=== PATIENT | female | born 1995 | race Caucasian/White ===

== ENCOUNTER 2016-12-08 17:19 | Emergency (ER) | payer OTHER ==
[~2016-12-08] VITALS: Ht 160 cm; Wt 49.9 kg
[~2016-12-08 17:19] MED LIST: AMOX500C2; HYDR-3812; TRAM-42 PO
[2016-12-08 17:39] LABS: BASOPHILS % (AUTO) 1 % (0-10); EOSINOPHILS % (AUTO) 1 % (0-10); LYMPHOCYTES % (AUTO) 29 % (12-44); MEAN CORPUSCULAR HEMOGLOBIN 30 PG (25-34); MEAN CORPUSCULAR HGB CONC 34 G/DL (32-36); MEAN CORPUSCULAR VOLUME 88 FL (80-99); MEAN PLATELET VOLUME 11.1 FL (7.4-10.4); MONOCYTES % (AUTO) 14 % (0-12); NEUTROPHILS % (AUTO) 56 % (42-75); PLATELET COUNT 266 10^3/uL (130-400); RED BLOOD COUNT 4.41 10^6/uL (4.35-5.85); WHITE BLOOD COUNT 7.1 10^3/uL (4.3-11.0)
--- NOTE | 2016-12-08 17:39 | ED GI ---
General Chief Complaint: Abdominal/GI Problems Stated Complaint: VOMITING/UNABLE TO EAT Source of Information: Patient Exam Limitations: No Limitations History of Present Illness Time Seen By Provider: 17:37 Initial Comments To ER with reports of vomiting since 2 a.m., epigastric discomfort. Denies fevers chills or diarrhea. She is about 6 weeks' gestation with last menstrual period October 21. She did have a visit with the nurse at [facility] 2 weeks ago and is scheduled to see Dr. Carranza on December 30. She denies any vaginal bleeding or discharge. Does report some intermittent and infrequent lower abdominal cramping. Timing/Duration: 12-24 Hours Severity/Quality: Moderate Location: Suprapubic Radiation: No Radiation Activities at Onset: None Associated Symptoms: Nausea/Vomiting Allergies and Home Medications Allergies Coded Allergies: No Known Drug Allergies (Unverified , 07/08/16) Home Medications Amoxicillin 500 Mg Capsule, #30 (Reported) Hydrocodone/Acetaminophen 1 Each Tablet, #16 (Reported) Tramadol HCl 50 Mg Tablet, 50 MG PO Q4H, #20 Prescribed by: KOLE PARKINSON on 07/08/16 8222 Review of Systems Constitutional: see HPI EENTM: No Symptoms Reported Respiratory: No Symptoms Reported Cardiovascular: No Symptoms Reported Gastrointestinal: See HPI, Abdominal Pain, Nausea, Vomiting Genitourinary: See HPI Musculoskeletal: no symptoms reported Skin: no symptoms reported Psychiatric/Neurological: No Symptoms Reported Endocrine: No Symptoms Reported Hematologic/Lymphatic: No Symptoms Reported Past Iftlolk-Sqpcrq-Gszvvu Hx Patient Social History Alcohol Use: Denies Use Recreational Drug Use: No Smoking Status: Never a Smoker Recent Foreign Travel: No Contact w/Someone Who Travel: No Recent Hopitalizations: No Seasonal Allergies Seasonal Allergies: No Surgeries HX Surgeries: Yes (WISDOM TEETH REMOVED 07/08/16) Respiratory Hx Respiratory Disorders: No Cardiovascular Hx Cardiac Disorders: No Neurological Hx Neurological Disorders: No Reproductive System Hx Reproductive Disorders: No Genitourinary Hx Genitourinary Disorders: No Gastrointestinal Hx Gastrointestinal Disorders: No Musculoskeletal Hx Musculoskeletal Disorders: No Endocrine Hx Endocrine Disorders: No HEENT HX ENT Disorders: No Cancer Hx Cancer: No Psychosocial Hx Psychiatric Problems: No Integumentary HX Skin/Integumentary Disorder: No Blood Transfusions Hx Blood Disorders: No Physical Exam Vital Signs VS - Last 72 Hours, by Label 12/08/16 17:30 Temp 97.9 Pulse 72 Resp 18 B/P (MAP) 131/81 Pulse Ox 99 Capillary Refill : General Appearance: WD/WN, no apparent distress HEENT: PERRL/EOMI, normal ENT inspection Neck: non-tender, full range of motion Respiratory: no respiratory distress, no accessory muscle use Gastrointestinal: normal bowel sounds, non tender, soft Extremities: non-tender Neurologic/Psychiatric: alert, normal mood/affect, oriented x 3 Skin: normal color, warm/dry Progress/Results/Core Measures Results/Orders Lab Results Laboratory Tests Test 12/08/16 17:30 Range/Units White Blood Count 7.1 4.3-11.0 10^3/uL Red Blood Count 4.41 4.35-5.85 10^6/uL Hemoglobin 13.0 11.5-16.0 G/DL Hematocrit 39 35-52 % Mean Corpuscular Volume 88 80-99 FL Mean Corpuscular Hemoglobin 30 25-34 PG Mean Corpuscular Hemoglobin Concent 34 32-36 G/DL Red Cell Distribution Width 14.0 10.0-14.5 % Platelet Count 266 130-400 10^3/uL Mean Platelet Volume 11.1 H 7.4-10.4 FL Neutrophils (%) (Auto) 56 42-75 % Lymphocytes (%) (Auto) 29 12-44 % Monocytes (%) (Auto) 14 H 0-12 % Eosinophils (%) (Auto) 1 0-10 % Basophils (%) (Auto) 1 0-10 % Neutrophils # (Auto) 4.0 1.8-7.8 X 10^3 Lymphocytes # (Auto) 2.0 1.0-4.0 X 10^3 Monocytes # (Auto) 1.0 0.0-1.0 X 10^3 Eosinophils # (Auto) 0.0 0.0-0.3 10^3/uL Basophils # (Auto) 0.0 0.0-0.1 10^3/uL Sodium Level 136 135-145 MMOL/L Potassium Level 3.7 3.6-5.0 MMOL/L Chloride Level 107 98-107 MMOL/L Carbon Dioxide Level 20 L 21-32 MMOL/L Anion Gap 9 5-14 MMOL/L Blood Urea Nitrogen 5 L 7-18 MG/DL Creatinine 0.59 L 0.60-1.30 MG/DL Estimat Glomerular Filtration Rate > 60 BUN/Creatinine Ratio 8 Glucose Level 80 70-105 MG/DL Calcium Level 9.1 8.5-10.1 MG/DL Total Bilirubin 0.5 0.1-1.0 MG/DL Aspartate Amino Transf (AST/SGOT) 13 5-34 U/L Alanine Aminotransferase (ALT/SGPT) 9 0-55 U/L Alkaline Phosphatase 52 40-136 U/L Total Protein 7.1 6.4-8.2 G/DL Albumin 4.1 3.2-4.5 G/DL Lipase 4 L 8-78 U/L My Orders Orders - HANNAH MARION APRN Cbc With Automated Diff (12/08/16 17:33) Comprehensive Metabolic Panel (12/08/16 17:33) Lipase (12/08/16 17:33) Hcg,Quantitative (12/08/16 17:33) Ua Culture If Indicated (12/08/16 17:33) Saline Lock/Iv-Start (12/08/16 17:33) Us Ob Single Fetus<14 [id number] (12/08/16 17:33) Ns Iv 1000 Ml (Sodium Chloride 0.9%) (12/08/16 17:45) Ondansetron Injection (Zofran Injectio (12/08/16 17:45) Medications Given in ED Current Medications Medications Dose Ordered Sig/Aishwarya Route Start Time Stop Time Status Last Admin Dose Admin Ondansetron HCl 4 mg ONCE ONCE IVP 12/08/16 17:45 12/08/16 17:46 DC 12/08/16 17:46 4 MG Vital Signs/I&O Vital Sign - Last 12Hours 12/08/16 17:30 Temp 97.9 Pulse 72 Resp 18 B/P (MAP) 131/81 Pulse Ox 99 Diagnostic Imaging Diagonstic Imaging: Ultrasound Comments NAME: VIVIANA PENG MED REC#: [id number] PT STATUS: REG ER : 1995 PHYSICIAN: HANNAH MARION APRN ADMIT DATE: 12/08/16/ER Draft Date of Exam:12/08/16 US OB SINGLE FETUS<14 [id number] PROCEDURE: US OB SINGLE FETUS <14 WKS. TECHNIQUE: Multiple real-time grayscale images were obtained over the gravid uterus in various projections. INDICATION: A 21-year-old female with nausea. . COMPARISON: None available. FINDINGS: There is a single live intrauterine with a gestational sac appropriately positioned in the fundus of the uterus. An embryo is present with a crown-rump length of 1.7 cm. This corresponds to a gestational age of 8 weeks and 2 days. heart beat is identified at a rate of 165 beats per minute. The ovaries are not visualized due to obscuration from bowel gas. No free pelvic fluid. IMPRESSION: 1. Single live intrauterine with heart rate of 165 beats per minute. 2. Estimated gestational age by crown-rump length is 8 weeks and 2 days. Dictated on workstation # [id number] Dict: 12/08/161803 Trans: 12/08/161806 [id number] Interpreted by: GIO BENAVIDES MD Electronically signed by: Departure Impression Impression: Primary Impression: Nausea and vomiting during Disposition: 01 HOME, SELF-CARE Condition: Stable Departure-Patient Inst. Decision time for Depature: 18:22 Referrals: NO,LOCAL PHYSICIAN (PCP/Family) Primary Care Physician Patient Instructions: Nausea and Vomiting of (DC) Add. Discharge Instructions: 1. Return to ER for any concerns 2. Follow-up with Dr. Carranza next week 3. All discharge instructions reviewed with patient and/or family. Voiced understanding. HANNAH MARION APRN Dec 08, 2016 17:39
[2016-12-08] MEDS ORDERED: ONDANSETRON 4 MG/2 ML (SDV) Z0FRAN IVP ONE (17:45)
[2016-12-08] MEDS ORDERED: NS IV 1000 ML 1,000 ML IV SCH (17:45)
[2016-12-08 17:57] LABS: ALANINE AMINOTRANSFERASE 9 U/L (0-55); ALBUMIN 4.1 G/DL (3.2-4.5); ANION GAP 9 MMOL/L (5-14); ASPARTATE AMINO TRANSFERASE 13 U/L (5-34); BILIRUBIN,TOTAL 0.5 MG/DL (0.1-1.0); BLOOD UREA NITROGEN 5 MG/DL (7-18); BUN/CREATININE RATIO 8; CALCIUM 9.1 MG/DL (8.5-10.1); CARBON DIOXIDE 20 MMOL/L (21-32); CHLORIDE 107 MMOL/L (98-107); CREATININE SERUM 0.59 MG/DL (0.60-1.30); GFR ESTIMATED > 60; GLUCOSE 80 MG/DL (70-105); LIPASE 4 U/L (8-78); POTASSIUM 3.7 MMOL/L (3.6-5.0); SODIUM 136 MMOL/L (135-145); TOTAL PROTEIN 7.1 G/DL (6.4-8.2)
--- NOTE | 2016-12-08 18:07 | Diagnostic Imaging Report ---
PROCEDURE: US OB SINGLE FETUS <14 WKS. TECHNIQUE: Multiple real-time grayscale images were obtained over the gravid uterus in various projections. INDICATION: A 21-year-old female with nausea. . COMPARISON: None available. FINDINGS: There is a single live intrauterine with a gestational sac appropriately positioned in the fundus of the uterus. An embryo is present with a crown-rump length of 1.7 cm. This corresponds to a gestational age of 8 weeks and 2 days. heart beat is identified at a rate of 165 beats per minute. The ovaries are not visualized due to obscuration from bowel gas. No free pelvic fluid. IMPRESSION: 1. Single live intrauterine with heart rate of 165 beats per minute. 2. Estimated gestational age by crown-rump length is 8 weeks and 2 days. Dictated by: Dictated on workstation # [id number]
[2016-12-08 18:41] LABS: BILIRUBIN,URINE NEGATIVE (NEGATIVE); KETONES,URINE 2+ (NEGATIVE); LEUKOCYTE ESTERASE ,URINE NEGATIVE (NEGATIVE); NITRITE,URINE NEGATIVE (NEGATIVE); PH,URINE 7 (5-9); PROTEIN,URINE NEGATIVE (NEGATIVE); UROBILINOGEN,URINE NORMAL (NORMAL)
[2016-12-08 19:00] LABS: WBC,URINE RARE /HPF
[2016-12-08 19:18] VITALS: BP 118/63
== END 2016-12-08 19:15 | disposition home or self-care (01) ==
LOC: ER 17:19
DX: O21.0 Mild hyperemesis gravidarum (principal); Z3A.08 8 weeks gestation of pregnancy
CPT/HCPCS: 36415; 76801; 80053; 81000; 83690; 84702; 85025; 96361; 96374

== ENCOUNTER → 2017-02-24 | Outpatient (CLI) | payer OTHER ==
--- NOTE | 2017-02-24 16:16 | Diagnostic Imaging Report ---
INDICATION: screening. COMPARISON: Exam compared 12/08/2016. TECHNIQUE: Multiple real-time grayscale images were obtained over the gravid uterus. FINDINGS: Chavez gestation is in breech position measuring 19 weeks 1 day reflecting normal growth from initial exam. The anterior placenta appeared unremarkable. The amniotic fluid volume was within normal limits. Cervix 4 cm nondilated. There was no pathological finding at the anatomical survey however the lower spine was inadequately evaluated on a positional basis. Anterior placenta appeared normal with no abruption or previa. Biometrical measurements are as follows: Biparietal 4.3 cm, age 19 weeks 0 days. Head circumference 16.0 cm, age 18 weeks 6 days. Abdominal circumference 13.6 cm, age 19 weeks 1 days. Femur length 3.0 cm, age 19 weeks 3 days. Sonographic estimate age: 19 weeks 1 days. Sonographic estimated date of delivery: 07/20/17. Estimated Weight: 279 gm (+/- 41 gm). LMP percentile: 32%. heart rate: 144 beats per minute. Cervical length: 3.9 cm. number: 1 of 1. IMPRESSION: Chavez gestation measures 19 weeks 1 day. No pathological finding demonstrated, position limits spinal evaluation. Dictated by: Dictated on workstation # [id number]
== END ==
LOC: RAD 12:55
PROVIDERS: ATTEND Obstetrics & Gynecology
DX: Z36 Encounter for antenatal screening of mother (principal); Z3A.19 19 weeks gestation of pregnancy
CPT/HCPCS: 76805; 76817

== ENCOUNTER → 2017-03-24 | Outpatient (CLI) | payer OTHER ==
--- NOTE | 2017-03-24 19:12 | Diagnostic Imaging Report ---
INDICATION: screening. FINDINGS: Followup sonography performed with limited study to evaluate the spine, which was not well seen on the previous study of 02/24/2017. The spine is well seen on today's study and shows no overt abnormality. heart rate is 150 beats per minute. Placenta is anterior with no evidence of previa. Fetus is in cephalic presentation. IMPRESSION: Limited study shows the spine to be unremarkable in appearance, this was not well seen on the previous study. No other abnormality is seen. Dictated by: Dictated on workstation # [id number]
== END ==
LOC: RAD 14:18
PROVIDERS: ATTEND Obstetrics & Gynecology
DX: Z36 Encounter for antenatal screening of mother (principal); Z3A.00 Weeks of gestation of pregnancy not specified
CPT/HCPCS: 76816